=== PATIENT | female | born 1950 | race Caucasian/White ===

== ENCOUNTER → 2019-08-19 | Day surgery (SDC) | payer MEDICARE ==
[2019-08-14 11:07] LABS: BASOPHILS # (AUTO) 0.1 (0.0-0.1); BASOPHILS % 0.6 % (0.0-1.0); EOSINOPHILS # (AUTO) 0.1 (0.0-0.4); EOSINOPHILS % 1.3 % (0.0-6.0); HEMOGLOBIN 13.5 g/dL (12.0-16.0); LYMPHOCYTES # (AUTO) 2.3 (1.0-3.2); LYMPHOCYTES % 29.2 % (18.0-39.1); MEAN CORPUSCULAR HEMOGLOBIN 31.5 pg (28-32); MEAN CORPUSCULAR HGB CONC 33.8 g/dL (31-35); MEAN CORPUSCULAR VOLUME 93.5 fL (81-99); MONOCYTES # (AUTO) 0.5 (0.2-0.8); MONOCYTES % 6.1 % (4.4-11.3); NEUTROPHILS # (AUTO) 4.9 (2.1-6.9); NEUTROPHILS % 62.4 % (38.7-80.0); PLATELET COUNT 280 x10e3/uL (140-360); RED BLOOD COUNT 4.28 x10e6/uL (3.6-5.1); RED CELL DISTRIBUTION WIDTH 13.2 % (11.7-14.4)
[2019-08-14 11:23] LABS: ANION GAP 15.6 mmol/L (8-16); CALCIUM 9.5 mg/dL (8.4-10.2); POTASSIUM 3.6 mmol/L (3.5-5.1)
--- NOTE | 2019-08-14 11:36 | Diagnostic Imaging Report ---
Chest, 2 views, 08/14/2019. History: Preop, lipoma. Comparison: None available. Findings: The cardiomediastinal silhouette and pulmonary vasculature are within normal limits. The lungs are clear without evidence of consolidation or pleural effusion. Surgical hardware is present in the upper thoracic spine. There are no acute osseous or soft tissue abnormalities. Impression: No acute cardiopulmonary abnormality. Signed by: Sky Pepper on 08/14/2019 11:33 AM
[~2019-08-19] MED LIST: BUPIVACAINE 0.25%/EPI 30ML SDV INJ ONE; CALCIUM CARBON500 MG PO; CYMBALTA PO; CYMBALTA30 MG PO; DEXAMETHASONE SOD PHOS INJ 4 MG/ML VIAL ONE; EPHEDRINE SULFATE INJ 50 MG/ML VIAL ONE; EXCEDRIN MIGRA1 EAC3 PO; FENTANYL CITRATE/PF 100MCG/2 ML INJ ONE; GINGER ROOT1 GM PO; GLUCOSAMINE1000 MG PO; INDERAL PO; KETOROLAC TROMETHAMINE 30 MG/ML VIAL ONE; LEVAQUIN500 MG PO; LIDOCAINE HCL 2% LOCAL INJ 5 ML SDV VIAL INJ ONE; LISINOPRIL-HCT1 EAC1 PO; MELOXICAM15 MG PO; MIDAZOLAM HCL 2 MG/2 ML VIAL ONE; MULTIVITAMINS1 EAC7 PO; OMEPRAZOLE40 MG PO; ONDANSETRON HCL INJ 2MG/ML 2ML 2 MG/ML VIAL ONE; POTASSIUM CHLO10 ME1 PO; PRISTIQ ER100 MG PO; PROPOFOL IV EMULSION 10 MG/ML 20 ML VIAL ONE; PROPRANOLOL HCL40 MG PO; QUETIAPINE FUMA25 MG PO; ROCURONIUM BROMIDE 10 MG/ML 5ML VIAL ONE; SEVOFLURANE INHAL SOLN 250 ML PEN BTL ONE; SUCCINYLCHOLINE CHLORIDE 20 MG/ML 10ML VIAL ONE; TYLENOL WITH C1 EACH PO; VITAMIN B-121000 MC1 PO; ZYRTEC10 M3 PO
--- OUTSIDE RECORDS SUMMARY | 2019-08-19 06:38 | XMS REPORT ---
Author Author [facility] Address Unknown Phone Unavailable Care Team Providers Care Bridge Tender Name Role Phone Moy RAMOS Unavailable Unavailable COREY, JEAN CARLOS Unavailable Unavailable Problems This patient has no known problems. Allergies, Adverse Reactions, Alerts This patient has no known allergies or adverse reactions. Medications This patient has no known medications. Results Test Description Test Time Test Comments Text Results Atomic Results Result Comments CHEST 2 VIEWS 2019-08-14 11:32:00 [place] [address] Patient Name: MALCOM GARVIN MR #: [id number] : 1950 Age/Sex: 68/F Req #: [id number] Adm Physician: Ordered by: JONE RAMOS MD Report #: [id number] Location: OR Room/Bed: Procedure: [id number] DX/CHEST 2 VIEWS Exam Date: 08/14/19 Exam Time: 1050 REPORT STATUS: Signed Chest, 2 views, 08/14/2019. History: Preop, lipoma. Comparison: None available. Findings: The cardiomediastinal silhouette and pulmonary vasculature are within normal limits. The lungs are clear without evidence of consolidation or pleural effusion. Surgical hardware is present in the upper thoracic spine. There are no acute osseous or soft tissue abnormalities. Impression: No acute cardiopulmonary abnormality. Signed by: Sky Pepper on 08/14/2019 11:33 AM Dictated By: SKY PEPPER MD Transcribed By: ROC on 08/14/191132 COPY TO: JONE RAMOS MD CHEST 2 VIEWS 2018-09-24 16:40:00 [place] [address] Patient Name: MALCOM GARVIN MR #: [id number] : 1950 Age/Sex: 67/F Req #: [id number] Adm Physician: Ordered by: JONE RAMOS MD Report #: [id number] Location: OR Room/Bed: Procedure: [id number] DX/CHEST 2 VIEWS Exam Date: 09/24/18 Exam Time: 1600 REPORT STATUS: Signed EXAM: CHEST 2 VIEWS, PA and lateral DATE: 09/24/2018 3:53 PM Time stamp on exam: 4:02 PM INDICATION: Preoperative COMPARISON: None FINDINGS: LINES/TUBES: None LUNGS: No consolidations or edema. PLEURA: No effusions or pneumothorax. HEART AND MEDIASTINUM: Normal size and contour. BONES AND SOFT TISSUES: Degenerative changes of the thoracic spine. Mild scoliosis. Cervical plate overlies the lower cervical spine. IMPRESSION: No acute thoracic abnormality. Signed by: Dr. Sapphire Peralta DO on 09/24/2018 4:42 PM Dictated By: SAPPHIRE PERALTA DO 164 Transcribed By: ROC on 09/24/181641 COPY TO: JONE RAMOS MD CHOLANGIOGRAM INTROP 2018-05-22 15:16:00 [address], [place], [place] [address] Patient Name: MALCOM GARVIN MR #: [id number] : 1950 Age/Sex: 67/F Req #: [id number] Adm Physician: JEAN CARLOS COREY MD Ordered by: JEAN CARLOS COREY MD Report #: [id number] Location: [facility]/SURG[facility] Room/Bed: [facility] Procedure: [id number] DX/CHOLANGIOGRAM INTROP Exam Date: 05/22/18 Exam Time: 1100 REPORT STATUS: Signed Diagnostic Cholangiogram Technique: Fluoroscopic spot images are provided from ERCP with cholangiogram. Request provided for diagnostic Radiology interpretation of cholangiogram. Findings: The common bile duct is opacified. No evidence of filling defect to suggest stone. No CBD or intrahepatic biliary ductal dilatation is demonstrated. Contrast opacifies the duodenum. Conclusion: Cho langiogram demonstrating no evidence of stone in the common bile duct. CBD appears patent with flow of contrast into the duodenum. Signed by: Dr. Mena Garcia MD on 05/22/2018 3:20 PM Dictated By: MENA GARCIA MD 1520 Transcribed By: ROC on 05/22/18 1520 COPY TO: JEAN CARLOS COREY MD MRI MRCP WO 2018-05-20 12:31:00 [place] [address] Patient Name: MALCOM GARVIN MR #: [id number] : 1950 Age/Sex: 67/F Req #: [id number] Adm Physician: JEAN CARLOS COREY MD Ordered by: DAVID BERRY MD Report #: [id number] Location: MED/SURG3 Room/Bed: 294- 1 Procedure: [id number] MRI/MRI MRCP WO Exam Date: Exam Time: REPORT STATUS: Signed EXAM: Magnetic Resonance Cholangiopancreatography (M.R.C.P.) INDICATION: COMPARISON: Right upper quadrant ultrasound 9 04/19/2018 TECHNIQUE: Multiplanar, multisequence MRCP was performed, with sequences including coronal turbo spin-echo T1-weighted scans, SSH MRCP scans, coronal spin, coronal MPR 2, SMRCP 3D HR, [facility] MRCP CHAVEZ. IV Contrast: None Oral Contrast: None Medications: None COMPLICATIONS: None FINDINGS: LOWER THORAX: Unremarkable. HEPATOBILIARY: MRI signal intensity suggestive of steatosis. No focal hepatic lesions. No biliary ductal dilation. GALLBLADDER: Multiple 1 to 2 mm gallstones are near the gallbladder neck. No wall thickening. There appears to be a tiny nonobstructing filling stone within the ostium of the cystic duct (series 400, image 17). The common bile duct and intrahepatic ducts are normal in caliber without filling defects. SPLEEN: No splenomegaly. PANCREAS: No focal masses or ductal dilatation. ADRENALS: No adrenal nodules KIDNEYS/URETERS: Unremarkable on limited evaluation. GI TRACT: Unremarkable on limited evaluation. LYMPH NODES: No lymphadenopathy. VESSELS: Unremarkable. PERITONEUM / RETROPERITONEUM: No free air or fluid. BONES: Unremarkable. SOFT TISSUES: Unremarkable. IMPRESSION: 1. Multiple tiny gallstones near the gallbladder neck with possible tiny stone in the ostium of the cystic duct which is not dilated. 2. No filling defects within the intrahepatic and common bile ducts. Signed by: Dr. All Luna M.D. on 05/20/2018 1:14 PM Dictated By: ALL LUNA MD Transcribed By: ROC on 05/20/181313 COPY TO: DAVID BERRY MD US ABDOMEN LIMITED 2018-05-20 09:36:00 [place] [address] Patient Name: MALCOM GARVIN MR #: [id number] : 1950 Age/Sex: 67/F Req #: [id number] Adm Physician: Ordered by: DAVID BERRY MD Report #: [id number] Location: ER Room/Bed: Procedure: [id number] US/US ABDOMEN LIMITED Exam Date: Exam Time: REPORT STATUS: Signed EXAM: Right Upper Quadrant Ultrasound INDICATION: COMPARISON: None. TECHNIQUE: Transverse and longitudinal images of the right upper abdomen were obtained. FINDINGS: Liver: Size: 17 cm in the right midclavicular line, mildly increased Appearance: Mildly increased echogenicity, smooth contour Mass: No focal masses Gallbladder: Stones/Sludge: Multiple tiny echogenic stones. Wall: 0.4 cm Appearance: No wall thickening, pericholecystic fluid or hydrops. Sonographic Hayden's Sign: Negative Bile Ducts: Intrahepatic Ducts: No dilatation Extrahepatic Ducts: Common bile duct measures 0.5 cm, no dilatation Pancreas: Visualized portions of the pancreatic head, neck and proximal body are normal. Kidneys: Length: Right 10.0 cm Echogenicity: Normal Collecting System: No hydronephrosis Stone: None Cyst/Mass: None Vessels: Aorta: Visualized portions are normal Inferior Vena Cava: Visualized portions are normal Main Portal Vein: 1 cm, normal size with hepatopetal flow. Free Fluid: No ascites or pleural effusion IMPRESSION: 1. Mild hepatomegaly with associated hepatic steatosis. 2. Cholelithiasis consistent in multiple tiny calcified stones without sonographic findings to suggest cholecystitis. Signed by: Dr. All Luna M.D. on 05/20/2018 9:41 AM Dictated By: ALL LUNA MD 0 Transcribed By: ROC on 05/20/18940 COPY TO: DAVID BERRY MD
--- NOTE | 2019-08-19 07:10 | NUR ---
SPIRITUAL CARE - Pre-Surgery Assessment: Pt in bed. Pt's at bedside. Pt reported supportive attention from family and friends. Intervention: I provided pastoral presence, hospitality, sympathetic listening, and prayer. I acquainted pt with availability of ramp and cargo supervisor while hospitalized. Outcome: Pt expressed appreciation for visit. No need for follow up indicated at this time. [facility] Spiritual Care Department O: [phone] Pager: [phone] ([phone] number calling from)
[2019-08-19 10:20] VITALS: BP 108/68
--- NOTE | 2019-08-19 12:42 | Operative Report ---
DATE OF PROCEDURE: 08/19/2019 SURGEON: Alejandro Leon MD PREOPERATIVE DIAGNOSIS: Large mass of the upper mid back. POSTOPERATIVE DIAGNOSIS: Large mass of the upper mid back. OPERATION PERFORMED: Resection of partially intramuscular multilobulated mass of the upper midback. PLASTIC FINISHER: NICOLE Reyes. ANESTHESIA: General. COMPLICATIONS: None. ESTIMATED BLOOD LOSS: Minimal. DESCRIPTION OF PROCEDURE: With the patient lying in bed in the supine position, the patient was placed into general anesthesia and then turned into the prone position. The back was prepped with Betadine solution and draped in the usual manner. The area overlying the mass in the upper midback was then infiltrated with 0.25% Marcaine with epinephrine. An incision was made. It was carried down through the subcutaneous tissue and immediately, a well encapsulated multilobulated mass consistent with a lipoma was encountered. This was partially intramuscular in the muscles on both sides of the back and this was slowly and carefully then from all the structures including the muscles and the midline fascia, and the mass was totally and completely removed, and sent for pathological examination. Hemostasis was then ascertained. Subcutaneous tissue was then approximated with interrupted sutures of 3-0 Vicryl and the skin was closed with interrupted vertical mattress sutures of 3-0 silk. A dressing was applied. The sponge, lap, and needle count was correct. The patient tolerated the procedure well and returned to the recovery room in stable condition. Alejandro Leon MD JLR/MODL /[id number]
== END | disposition home or self-care (01) ==
LOC: OR 06:25
PROVIDERS: ATTEND Surgery
DX: D17.9 Benign lipomatous neoplasm, unspecified (principal); G47.33 Obstructive sleep apnea (adult) (pediatric); I10 Essential (primary) hypertension; K21.9 Gastro-esophageal reflux disease without esophagitis; Z88.0 Allergy status to penicillin; Z01.810 Encounter for preprocedural cardiovascular examination; Z01.812 Encounter for preprocedural laboratory examination; Z01.818 Encounter for other preprocedural examination; Z79.82 Long term (current) use of aspirin
CPT/HCPCS: 21933; 36415; 71046; 80048; 85025; 88304; 93005; J0330; J1100; J1885; J2001; J2250; J2405; J2704; J3010

== ENCOUNTER → 2020-12-21 | Outpatient (CLI) | payer OTHER ==
[~2020-12-21] MED LIST changes: -BUPIVACAINE 0.25%/EPI 30ML SDV INJ ONE; -DEXAMETHASONE SOD PHOS INJ 4 MG/ML VIAL ONE; -EPHEDRINE SULFATE INJ 50 MG/ML VIAL ONE; -FENTANYL CITRATE/PF 100MCG/2 ML INJ ONE; -KETOROLAC TROMETHAMINE 30 MG/ML VIAL ONE; -LIDOCAINE HCL 2% LOCAL INJ 5 ML SDV VIAL INJ ONE; -MIDAZOLAM HCL 2 MG/2 ML VIAL ONE; -ONDANSETRON HCL INJ 2MG/ML 2ML 2 MG/ML VIAL ONE; -PROPOFOL IV EMULSION 10 MG/ML 20 ML VIAL ONE; -ROCURONIUM BROMIDE 10 MG/ML 5ML VIAL ONE; -SEVOFLURANE INHAL SOLN 250 ML PEN BTL ONE; -SUCCINYLCHOLINE CHLORIDE 20 MG/ML 10ML VIAL ONE
== END ==
LOC: MRI 14:31
PROVIDERS: ATTEND Family Medicine
DX: S46.012A Strain of muscle(s) and tendon(s) of the rotator cuff of left shoulder, initial encounter (principal)

== ENCOUNTER 2021-06-15 07:47 | Outpatient (RCR) | payer MEDICARE ==
[~2021-06-15 07:47] MED LIST changes: +PANTOPRAZOLE SO20 MG PO
== END 2021-06-17 ==
LOC: PT 07:47
PROVIDERS: ATTEND Orthopaedic Surgery
DX: M75.122 Complete rotator cuff tear or rupture of left shoulder, not specified as traumatic (principal); M75.42 Impingement syndrome of left shoulder

== ENCOUNTER 2021-07-16 11:00 | Outpatient (RCR) | payer MEDICARE | END 2021-07-18 | LOC: PT 11:00 | PROVIDERS: ATTEND Orthopaedic Surgery | DX: M75.122 Complete rotator cuff tear or rupture of left shoulder, not specified as traumatic (principal); M75.42 Impingement syndrome of left shoulder | CPT/HCPCS: 97139 ==

== ENCOUNTER 2021-08-10 10:55 | Outpatient (RCR) | payer MEDICARE | END 2021-08-17 | LOC: PT 10:55 | PROVIDERS: ATTEND Orthopaedic Surgery | DX: M75.122 Complete rotator cuff tear or rupture of left shoulder, not specified as traumatic (principal); M75.42 Impingement syndrome of left shoulder | CPT/HCPCS: 97139 ==

== ENCOUNTER → 2021-08-27 | Day surgery (SDC) | payer MEDICARE ==
[2021-08-25 12:25] LABS: BASOPHILS # (AUTO) 0.1 (0.0-0.1); BASOPHILS % 0.8 % (0.0-1.0); EOSINOPHILS # (AUTO) 0.1 (0.0-0.4); EOSINOPHILS % 1.2 % (0.0-6.0); HEMATOCRIT 38.3 % (34.2-44.1); HEMOGLOBIN 12.5 g/dL (12.0-16.0); LYMPHOCYTES % 29.9 % (18.0-39.1); MEAN CORPUSCULAR HEMOGLOBIN 31.8 pg (28-32); MEAN CORPUSCULAR HGB CONC 32.6 g/dL (31-35); MEAN CORPUSCULAR VOLUME 97.5 fL (81-99); MONOCYTES # (AUTO) 0.5 (0.2-0.8); MONOCYTES % 6.8 % (4.4-11.3); NEUTROPHILS % 60.8 % (38.7-80.0); PLATELET COUNT 212 x10e3/uL (140-360); RED BLOOD COUNT 3.93 x10e6/uL (3.6-5.1); RED CELL DISTRIBUTION WIDTH 13.7 % (11.7-14.4)
[2021-08-25 12:49] LABS: ALBUMIN 4.2 g/dL (3.5-5.0); ALBUMIN/GLOBULIN RATIO 1.5 (0.8-2.0); ANION GAP 13.4 mmol/L (8-16); CALCIUM 9.3 mg/dL (8.4-10.2); CREATININE, SERUM 0.82 mg/dL (0.57-1.11); POTASSIUM 3.4 mmol/L (3.5-5.1)
[~2021-08-27] MED LIST changes: +BUPIVACAINE 0.25% 30ML SDV ONE; +DEXAMETHASONE SOD PHOS INJ 4 MG/ML SDV ONE; +FENTANYL CITRATE/PF 100MCG/2 ML INJ ONE; +LIDOCAINE HCL 2% LOCAL INJ 5 ML SDV VIAL INJ ONE; +MIDAZOLAM HCL 2 MG/2 ML VIAL ONE; +ONDANSETRON HCL INJ 2MG/ML 2ML 2 MG/ML VIAL ONE; +POVIDONE IODINE 0.05% 0.05 % ML PO ONE; +PROPOFOL IV EMULSION 10 MG/ML 20 ML VIAL ONE; +SEVOFLURANE INHAL SOLN 250 ML PEN BTL ONE
[2021-08-27 13:40] VITALS: BP 143/82
== END | disposition home or self-care (01) ==
LOC: OR 07:50
PROVIDERS: ATTEND Surgery
DX: D17.24 Benign lipomatous neoplasm of skin and subcutaneous tissue of left leg (principal); D17.23 Benign lipomatous neoplasm of skin and subcutaneous tissue of right leg; G47.33 Obstructive sleep apnea (adult) (pediatric); I10 Essential (primary) hypertension; K21.9 Gastro-esophageal reflux disease without esophagitis; F32.A Depression, unspecified; Z88.0 Allergy status to penicillin; Z01.812 Encounter for preprocedural laboratory examination; Z20.822 Contact with and (suspected) exposure to COVID-19; Z79.82 Long term (current) use of aspirin; Z79.899 Other long term (current) drug therapy
CPT/HCPCS: 11403; 11404; 12032; 36415; 80053; 85025; 88304; J1100; J2001; J2250; J2405; J2704; J3010; U0002

== ENCOUNTER 2021-09-16 10:53 | Outpatient (RCR) | payer MEDICARE ==
[~2021-09-16 10:53] MED LIST changes: -BUPIVACAINE 0.25% 30ML SDV ONE; -DEXAMETHASONE SOD PHOS INJ 4 MG/ML SDV ONE; -FENTANYL CITRATE/PF 100MCG/2 ML INJ ONE; -LIDOCAINE HCL 2% LOCAL INJ 5 ML SDV VIAL INJ ONE; -MIDAZOLAM HCL 2 MG/2 ML VIAL ONE; -ONDANSETRON HCL INJ 2MG/ML 2ML 2 MG/ML VIAL ONE; -POVIDONE IODINE 0.05% 0.05 % ML PO ONE; -PROPOFOL IV EMULSION 10 MG/ML 20 ML VIAL ONE; -SEVOFLURANE INHAL SOLN 250 ML PEN BTL ONE
== END 2021-09-17 ==
LOC: PT 10:53
PROVIDERS: ATTEND Orthopaedic Surgery
DX: M75.122 Complete rotator cuff tear or rupture of left shoulder, not specified as traumatic (principal); M75.42 Impingement syndrome of left shoulder
CPT/HCPCS: 97139

== ENCOUNTER 2021-10-07 10:52 | Outpatient (RCR) | payer MEDICARE | END 2021-10-18 | LOC: PT 10:52 | PROVIDERS: ATTEND Orthopaedic Surgery | DX: M75.122 Complete rotator cuff tear or rupture of left shoulder, not specified as traumatic (principal); M75.42 Impingement syndrome of left shoulder | CPT/HCPCS: 97139 ==

== ENCOUNTER → 2022-06-06 | Day surgery (SDC) | payer MEDICARE ==
[2022-06-01 11:15] LABS: BASOPHILS % 0.5 % (0.0-1.0); EOSINOPHILS # (AUTO) 0.1 (0.0-0.4); EOSINOPHILS % 1.8 % (0.0-6.0); HEMATOCRIT 36.9 % (34.2-44.1); HEMOGLOBIN 12.1 g/dL (12.0-16.0); MEAN CORPUSCULAR HEMOGLOBIN 32.1 pg (28-32); MEAN CORPUSCULAR HGB CONC 32.8 g/dL (31-35); MEAN CORPUSCULAR VOLUME 97.9 fL (81-99); MONOCYTES # (AUTO) 0.4 (0.2-0.8); MONOCYTES % 6.5 % (4.4-11.3); NEUTROPHILS % 60.9 % (38.7-80.0); PLATELET COUNT 203 x10e3/uL (140-360); RED BLOOD COUNT 3.77 x10e6/uL (3.6-5.1); RED CELL DISTRIBUTION WIDTH 13.3 % (11.7-14.4)
[~2022-06-06] MED LIST changes: +ASPIRIN81 MG PO; +BIOTIN 800 MCG1 EACH PO; +COLLAGEN 15001 EACH PO; +FENTANYL CITRATE/PF 100MCG/2 ML INJ ONE; +LIDOCAINE HCL 2% LOCAL INJ 5 ML SDV VIAL INJ ONE; +LIPITOR10 MG PO; +MAGNESIUM OXID400 MG PO; +MIDAZOLAM HCL 2 MG/2 ML VIAL ONE; +NIACIN100 MG PO; +PROBIOTIC & AC1 EACH PO; +PROPOFOL IV EMULSION 10 MG/ML 20 ML VIAL ONE; +VIT C PO; +VIT D3 PO; +VIT E PO; +ZINC PO
[2022-06-06 13:15] VITALS: BP 111/64
== END | disposition home or self-care (01) ==
LOC: OR 10:20
PROVIDERS: ATTEND Internal Medicine Gastroenterology
DX: K59.00 Constipation, unspecified (principal); Z86.010 Personal history of colon polyps; K57.30 Diverticulosis of large intestine without perforation or abscess without bleeding; K64.8 Other hemorrhoids; K21.9 Gastro-esophageal reflux disease without esophagitis; Z71.3 Dietary counseling and surveillance; G47.33 Obstructive sleep apnea (adult) (pediatric); E78.5 Hyperlipidemia, unspecified; I10 Essential (primary) hypertension; Z71.89 Other specified counseling; F32.A Depression, unspecified; Z88.0 Allergy status to penicillin; Z01.810 Encounter for preprocedural cardiovascular examination; Z01.812 Encounter for preprocedural laboratory examination; Z79.82 Long term (current) use of aspirin; Z79.899 Other long term (current) drug therapy; Z68.33 Body mass index [BMI] 33.0-33.9, adult; Z86.16 Personal history of COVID-19
CPT/HCPCS: 36415; 45378; 85025; 93005; J2001; J2250; J2704; J3010

== ENCOUNTER → 2024-01-11 | Outpatient (REF) | payer MEDICARE, OTHER ==
[~2024-01-11] MED LIST changes: -FENTANYL CITRATE/PF 100MCG/2 ML INJ ONE; -LIDOCAINE HCL 2% LOCAL INJ 5 ML SDV VIAL INJ ONE; -MIDAZOLAM HCL 2 MG/2 ML VIAL ONE; -PROPOFOL IV EMULSION 10 MG/ML 20 ML VIAL ONE
== END ==
LOC: MRI 08:18
PROVIDERS: ATTEND Pain Medicine Pain Medicine
DX: M54.16 Radiculopathy, lumbar region (principal)
CPT/HCPCS: 72148

== ENCOUNTER 2024-10-15 10:14 | Emergency (ER) | payer MEDICARE, OTHER ==
[~2024-10-15] VITALS: Ht 162.6 cm; Wt 86.2 kg
[~2024-10-15 10:14] MED LIST changes: +ABILIFY5 MG PO; +ASPIR 8181 MG PO; +BUPROPION XL150 MG PO; +CALCIUM600 MG PO; +GLUCOSAMINE 1,1 EACH PO; +LISINOPRIL10 MG PO; +LISINOPRIL20 MG PO; +SERTRALINE HCL50 MG PO; +VITAMIN B-122500 MCG PO
[2024-10-15 10:30] VITALS: TEMP 98.5
[2024-10-15] MEDS ORDERED: SODIUM CHLORIDE FLUSH 10 ML SYR IV PRN (11:00)
[2024-10-15 11:01] LABS: BASOPHILS % 0.6 % (0.0-1.0); EOSINOPHILS # (AUTO) 0.1 (0.0-0.4); EOSINOPHILS % 1.3 % (0.0-6.0); HEMATOCRIT 41.1 % (34.2-44.1); LYMPHOCYTES # (AUTO) 1.6 (1.0-3.2); LYMPHOCYTES % 21.9 % (18.0-39.1); MEAN CORPUSCULAR HEMOGLOBIN 31.9 pg (28-32); MEAN CORPUSCULAR HGB CONC 31.6 g/dL (31-35); MONOCYTES # (AUTO) 0.4 (0.2-0.8); MONOCYTES % 5.2 % (4.4-11.3); NEUTROPHILS # (AUTO) 5.1 (2.1-6.9); NEUTROPHILS % 70.7 % (38.7-80.0); PLATELET COUNT 219 x10e3/uL (140-360); RED BLOOD COUNT 4.07 x10e6/uL (3.6-5.1); RED CELL DISTRIBUTION WIDTH 13.3 % (11.7-14.4); WHITE BLOOD COUNT 7.16 x10e3/uL (4.8-10.8)
[2024-10-15 11:19] LABS: ALBUMIN 3.9 g/dL (3.5-5.0); ANION GAP 14.3 mmol/L (8-16); BILIRUBIN,TOTAL 0.6 mg/dL (0.2-1.2); CALCIUM 9.4 mg/dL (8.4-10.2); CREATININE, SERUM 0.82 mg/dL (0.57-1.11); TOTAL PROTEIN 6.6 g/dL (6.5-8.1)
[2024-10-15 11:20] LABS: ALBUMIN/GLOBULIN RATIO 1.4 (0.8-2.0)
[2024-10-15 11:22] LABS: POTASSIUM 3.3 mmol/L (3.5-5.1)
[2024-10-15 11:28] LABS: TROPONIN I 0.002 ng/mL (0-0.300)
[2024-10-15 12:13] VITALS: PULSE 61; RESP 16; O2SAT 100
== END 2024-10-15 12:15 | disposition home or self-care (01) ==
LOC: ER 10:32
DX: M54.2 Cervicalgia (principal); R07.89 Other chest pain; I10 Essential (primary) hypertension; F32.A Depression, unspecified
CPT/HCPCS: 36415; 71046; 80053; 83880; 84484; 85025; 93005; 99284

== ENCOUNTER 2025-01-12 08:37 | Emergency (ER) | payer MEDICARE, OTHER ==
[~2025-01-12] VITALS: Ht 162.6 cm; Wt 86.2 kg
[2025-01-12 08:43] VITALS: PULSE 83; RESP 12; TEMP 99.2
[2025-01-12 10:06] VITALS: BP 160/75; PULSE 68; RESP 19; O2SAT 95
== END 2025-01-12 10:07 | disposition home or self-care (01) ==
LOC: ER 08:45
DX: M25.561 Pain in right knee (principal); M19.09 Primary osteoarthritis, other specified site; I10 Essential (primary) hypertension; F32.A Depression, unspecified
CPT/HCPCS: 99283